=== PATIENT | female | born 1990 | race Caucasian/White ===

== ENCOUNTER → 2016-11-15 | Outpatient (CLI) | payer MEDICARE, MEDICAID ==
[~2016-11-15] MED LIST: BACTROBAN CREAM15 GM TP; BYSTOLIC10 MG PO; COGENTIN DPS2 MG PO; ERYTHROMYCIN 2%30 GM TP; HYDROCHLOROTHIA25 MG PO; IMODIUM DPS2 MG PO; KLOR-CON M2020 ME1 PO; LACRI-LUBE3.5 GM OU; LAMICTAL DPS100 MG PO; LATUDA40 MG PO; LIPITOR DPS10 MG PO; LORTAB LIQUID D15 ML PO; MILK OF MAGNESI10 ML PO; MINOCIN DPS100 MG PO; MYCOSTATIN PWD15 GM TP; NASONEX NASAL S17 GM NS; NORTREL 1-35 T1 EACH PO; OMEGA-3 DPS1000 MG PO; OMEPRAZOLE40 MG PO; RISPERDAL1 MG PO; THERA1 EACH PO; TUMS DPS500 MG PO; TYLENOL DPS325 MG PO; ZOFRAN ODT4 MG PO; ZYRTEC DPS10 MG PO
== END | disposition home or self-care (01) ==
LOC: PTH.S 13:05
DX: Z01.818 Encounter for other preprocedural examination (principal)

== ENCOUNTER → 2016-11-21 | Outpatient (CLI) | payer MEDICARE, MEDICAID | END | disposition home or self-care (01) | LOC: PTH.S 17:00 | DX: Z01.812 Encounter for preprocedural laboratory examination (principal); E87.6 Hypokalemia ==

== ENCOUNTER 2016-11-23 05:36 | Inpatient (IN) | payer MEDICARE, MEDICAID ==
[~2016-11-23] VITALS: Ht 165.1 cm; Wt 125.8 kg
--- NOTE | 2016-11-23 10:11 | OR ---
ADMIT: 11/23/2016 RM/LOC: [address] [id number] [id number] [address] [address] YOSEF HILTON [address] [place] [address] Operative/Delivery Room Report SEX: F AGE: 26 : 1990 SURGERY DATE: 11/23/2016 SURGEON: Nam Ayala MD PREOPERATIVE DIAGNOSIS: Morbid obesity. POSTOPERATIVE DIAGNOSIS: Morbid obesity. PROCEDURE: Laparoscopic vertical sleeve gastrectomy. SURGEON ASSISTANT: LATRICE Walker, whose assistance was necessary for tissue retraction and laparoscopic visualization. ANESTHESIA: General endotracheal. ESTIMATED BLOOD LOSS: 25 mL. DESCRIPTION OF PROCEDURE: The patient was taken to the operating room and placed supine on the operating room table. General anesthesia was established. The abdomen was prepped and draped in the standard surgical fashion. A 1.5 cm supraumbilical incision was made in the skin. The fascia was grasped with Jyotsna clamp, and a Veress needle was advanced into the peritoneal cavity. Carbon dioxide was used to insufflate the abdomen to 15 mmHg pressure. The Veress needle was withdrawn, and a 15 mm Optiview trocar was placed. Next, two right lateral 5 mm ports, left upper quadrant 5 mm and left lateral 5 mm ports were placed under visualization. The Brett liver retractor was advanced from a 5 mm subxiphoid incision and used to retract the left lobe of the liver. Adhesions in the left upper quadrant were taken down with Harmonic Scalpel. The angle of His was freed from its phrenic attachments with Harmonic Scalpel to expose the left anterior crura. Beginning 8 cm proximal to the pylorus, the greater curvature of the stomach was freed from the omentum with Harmonic Scalpel. This dissection proceeded to the fundus. The fundus was mobilized with complete division of the short gastric vessels with Harmonic Scalpel. This allowed full exposure of the left posterior crura. Anesthesia advanced a 38-Macedonian blunt-tip Bougie along the lesser curvature of the stomach to the antrum. This was used for creation and sizing of the sleeve. Next, the Greenwald 60 mm stapler was used to create the sleeve with the Bougie in place. This was fired from 8 cm proximal to the pylorus on the greater curvature and extended to the gastroesophageal junction. The staple loads used were black, followed by subsequent green loads of the Greenwald reinforced with Veritas. Intersection points of the staple line were intact and reinforced with Ligaclip. The gastric specimen ADMIT: 11/23/2016 RM/LOC: [address] [facility] MR#: [id number] [address] [address] [place] [address] Operative/Delivery Room Report SEX: F AGE: 26 : 1990 was removed through the 15 mm port site. The Bougie was withdrawn with no signs of bleeding. FloSeal was placed on the staple line. A 19-round channel drain was placed along the staple line and exited via the left lateral port site. The Brett liver retractor was removed. The ports were then removed under visualization without evidence of bleeding. The fascial margin at the 15 mm port site was approximated with the suture passer and an 0 Vicryl tie. The abdomen was allowed to deflate. The drain was secured to the skin with 2- 0 silk suture. Skin edges were approximated with 4-0 Monocryl in a subcuticular fashion and Dermabond. Local anesthetic was injected at the incisions. Sponge, needle, and instrument counts were correct at the end of the case. The patient tolerated the procedure well and transferred to the recovery area in stable condition. Nam Ayala MD/ juan JOB #: [id number] CC: Nam Ayala, Attending Physician Mei Blanco, Family Physician
[2016-11-25] MEDS ORDERED: LIPITOR DPS10 MG PO (19:59)
[2016-11-25] MEDS ORDERED: TUMS DPS500 MG PO (19:59)
[2016-11-25] MEDS ORDERED: COGENTIN DPS2 MG PO (20:00)
[2016-11-25] MEDS ORDERED: BYSTOLIC10 MG PO (20:00)
[2016-11-25] MEDS ORDERED: IMODIUM DPS2 MG PO (20:00)
[2016-11-25] MEDS ORDERED: TYLENOL DPS325 MG PO (20:00)
[2016-11-25] MEDS ORDERED: ZYRTEC DPS10 MG PO (20:00)
[2016-11-25] MEDS ORDERED: ERYTHROMYCIN 2%30 GM TP (20:01)
[2016-11-25] MEDS ORDERED: OMEGA-3 DPS1000 MG PO (20:01)
[2016-11-25] MEDS ORDERED: HYDROCHLOROTHIA25 MG PO (20:01)
[2016-11-25] MEDS ORDERED: MILK OF MAGNESI10 ML PO (20:02)
[2016-11-25] MEDS ORDERED: LATUDA40 MG PO (20:02)
[2016-11-25] MEDS ORDERED: LAMICTAL DPS100 MG PO (20:02)
[2016-11-25] MEDS ORDERED: BACTROBAN CREAM15 GM TP (20:02)
[2016-11-25] MEDS ORDERED: NORTREL 1-35 T1 EACH PO (20:03)
[2016-11-25] MEDS ORDERED: NASONEX NASAL S17 GM NS (20:03)
[2016-11-25] MEDS ORDERED: MYCOSTATIN PWD15 GM TP (20:03)
[2016-11-25] MEDS ORDERED: MINOCIN DPS100 MG PO (20:03)
[2016-11-25] MEDS ORDERED: THERA1 EACH PO (20:04)
[2016-11-25] MEDS ORDERED: OMEPRAZOLE40 MG PO (20:04)
[2016-11-25] MEDS ORDERED: LACRI-LUBE3.5 GM OU (20:04)
[2016-11-25] MEDS ORDERED: LORTAB LIQUID D15 ML PO (20:05)
[2016-11-25] MEDS ORDERED: KLOR-CON M2020 ME1 PO (20:05)
[2016-11-25] MEDS ORDERED: RISPERDAL1 MG PO (20:05)
[2016-11-25] MEDS ORDERED: ZOFRAN ODT4 MG PO (20:05)
--- NOTE | 2016-12-08 09:47 | DS ---
ADMIT: 11/23/2016 RM/LOC: [address] [facility] MR#: [id number] [address] [address] YOSEF HILTON [address] [place] [address] Discharge Summary SEX: F AGE: 26 : 1990 ADMISSION DATE: 11/23/2016 DISCHARGE DATE: 11/25/2016 ADMITTING DIAGNOSIS: Morbid obesity. DISMISSAL DIAGNOSES: 1. Morbid obesity. 2. GERD (gastroesophageal reflux disease). 3. Hypertension. 4. High cholesterol. PROCEDURES: Vertical laparoscopic sleeve gastrectomy. HOSPITAL COURSE: The patient was an inpatient admit with routine med surg orders. She was given a Dilaudid PAIN MANAGEMENT PHYSICIAN for pain control. After surgery, the patient transferred to the floor without any complications. She was a bit hypokalemic postop, but this was corrected with IV potassium chloride. Overall, the patient recovered well in the hospital. Her pain was controlled and upper GI series revealed no evidence of leak from surgery. Therefore, she was able to tolerate bariatric liquid diets just fine. She had normal return of her bowel function and was ambulating well. A YON that was placed intraoperatively was pulled on postop day number two. The patient continued to recover well. Her vitals were stable. Lab work normalized, and the patient was able to discharge home on 11/25/2016. DISCHARGE INSTRUCTIONS: 1. Follow up with Dr. Ayala in clinic in one week. 2. Liquid diet for two weeks. 3. Dressings off in two days. 4. No lifting greater than 20 pounds for 4 weeks. 5. Okay to shower. DISCHARGE MEDICATION LIST: 1. Tums 500 mg q.a.m. 2. Atorvastatin 10 mg 1/2 tab q.a.m. 3. Imodium 2 mg q.6 p.r.n. 4. Benztropine 2 mg t.i.d. 5. Bystolic 10 mg q.a.m. 6. Cetirizine 10 mg q.a.m. 7. Erythromycin-Benzoyl gel b.i.d. 8. Fish oil 1000 mg 2 caps as directed. 9. Hydrochlorothiazide 25 mg q.a.m. ADMIT: 11/23/2016 RM/LOC: [address] [facility] MR#: [id number] [id number] [place], [place] [address] YOSEF HILTON [address] [place] [address] Discharge Summary SEX: F AGE: 26 : 1990 10.Lamotrigine 100 mg b.i.d. 11.Latuda 120 mg q.a.m. 12.Mupirocin ointment b.i.d. 13.Milk of Mag 30 mL daily p.r.n. 14.Minocycline 100 mg q.a.m. 15.Nasonex nasal spray b.i.d. 16.Nortrel 1 tab q.a.m. 17.Nystatin powder t.i.d. p.r.n. 18.Multivitamin 1 tab q.a.m. 19.Refresh Opti eye drops 0.5-9% as needed. 20.Risperidone 1 mg 1/2 tab t.i.d. 21.Potassium 20 mg daily. LATRICE Walker / Nam Ayala MD / edgar JOB #: [id number] CC: Nam Ayala MD, Attending Physician Mei Blanco MD, Family Physician
== END 2016-11-25 10:20 | disposition home or self-care (01) | DRG 621 ==
LOC: WOR 05:36 → 6PED 05:36
PROVIDERS: ADMIT Surgery
PROC: 0DB64Z3 Excision of Stomach, Percutaneous Endoscopic Approach, Vertical (ICD-10-PCS; principal; 2016-11-23)
DX: E66.01 Morbid (severe) obesity due to excess calories (principal); I10 Essential (primary) hypertension; E78.00 Pure hypercholesterolemia, unspecified; K21.9 Gastro-esophageal reflux disease without esophagitis